=== PATIENT | male | born 1955 | race Caucasian/White ===

== ENCOUNTER 2021-11-27 10:09 | Emergency (ER) | payer OTHER, SELFPAY ==
[2021-11-27] VITALS (8 sets, daily range): BP systolic 125–142; BP diastolic 73–88; PULSE 110; RESP 18; TEMP 36.7; O2SAT 94–99
--- NOTE | ~2021-11-27 | XR_ITS ---
XR hip LT min 3V w AP pelvis DATE: 11/27/2021 11:03 INDICATION: Fall out of truck. Left hip pain, difficulty ambulating TECHNIQUE: AP pelvis. AP, lateral and crosstable lateral views of left hip COMPARISON: 06/17/2013 left hip FINDINGS: There is rotatory dextroscoliosis and prominent multilevel degenerative disease of the lumb ar and lumbosacral spine. The pubic symphysis and sacroiliac joints are intact. Status post left hip arthroplasty. Right hip moderately prominent osteoarthritis. No pelvic fracture or left hip fracture or dislocation or bone destruction is evident. 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 [employer]
--- NOTE | 2021-11-27 11:52 | ED.GENADULT ---
HPI - General Adult General Chief complaint: Fall Stated complaint: fall 11/24/21 - tailbone & hip pain Time Seen by Provider: 11/27/21 10:33 Source: patient Mode of arrival: ambulatory Limitations: no limitations History of Present Illness HPI narrative: Pt presents for evaluation of pain in the coccyx and left hip for the last 3 days. He was stepping down a ladder on a piece of work equipment and landed on his buttocks. He did not hit his head nor did he have a loss of consciousness. He reports constant pain in the affected areas since that time, with both areas rated 7/10 in severity. No radicular component. No paresthesias. No bladder/bowel incontinence. Denies saddle anesthesia. He had some leftover hydrocodone from some previous dental work which he took for his current pain. He states that the medication seems to have been effective. He has a hx of left hip replacement. He has been able to ambulate since the time of the event however movement seems to make his pain worse. Ortho provider is Dr Kaminski. Related Data Allergies Allergy/AdvReac Type Severity Reaction Status Date / Time Macrolide Antibiotics Allergy Unknown DIARRHEA Verified 07/18/15 15:13 Review of Systems Review of Systems: CONSTITUTIONAL: Denies fever, chills, or sweats. EYES: Denies visual changes, redness, or discharge. ENT: Denies rhinorrhea, congestion, sore throat, or otalgia. CARDIOVASCULAR: Denies chest pain, palpitations, or edema. RESPIRATORY: Denies cough or dyspnea. GASTROINTESTINAL: Denies abdominal pain, nausea, vomiting, or diarrhea. GENITOURINARY: Denies dysuria or hematuria. SKIN: Denies rash or itching. MUSCULOSKELETAL: Reports low back pain, pain in left hip and coccyx NEUROLOGIC: Denies headache, numbness, dizziness, or weakness. PSYCHIATRIC: Denies anxiety or depression. [facility] Surgical History Surgical History History of left hip replacement History of right knee joint replacement Family History Family History Mother Family history non-contributory Social History Social History Smoking packs per day: 1 Smoking cigarettes per day: 20.0 Smoking status: Current every day smoker Substance use: current Substance use type: marijuana Living arrangements: with family Gender identity (if verbalized by the patient): Male Sexual Orientation (if Verbalized by the Patient): Straight or Heterosexual Spiritual care concerns: No Exam Narrative: GENERAL: Well-appearing, well-nourished, and in no acute distress. HEAD: Normocephalic, atraumatic. EYES: PERRLA and EOMI. ENT: Nares clear, no rhinorrhea or epistaxis. Mucous membranes moist. Oropharynx without tonsillar hypertrophy exudate or other lesions. Bilateral TMs pearly baker nonbulging NECK: Supple. No adenopathy or masses. No carotid bruits or JVD CHEST: Clear to auscultation. No respiratory distress. No wheezes rales or rhonchi HEART: Regular rate and rhythm. No murmur heard. Normal peripheral pulses. ABDOMEN: Soft, nontender, nondistended, normal active bowel sounds. EXTREMITIES: Tenderness over left hip. Normal range of motion. No edema. BACK: Tenderness in midline and paraspinous muscles of lumbar spine and over sacrum SKIN: Warm, dry, no rash. NEURO: No focal deficits. Alert and oriented x3. PSYCH: Normal mood and affect. Course Course Emergency Course: This is a 66-year-old male who presented with complaints of pain in the tailbone and left hip following a fall several days ago. X ray was negative for fracture or disruption of hardware. I did verify with reading radiologist that there was no apparent fracture of the coccyx which he was able to visualize. Pt should follow-up outpatient for further evaluation and treatment return for worsening symptoms. Will DC with prescription fo
== END 2021-11-27 12:45 | disposition home or self-care (01) ==
PROVIDERS: Emergency Provider Nurse Practitioner; PCP Internal Medicine
DX: S30.0XXA Contusion of lower back and pelvis, initial encounter (principal); S70.02XA Contusion of left hip, initial encounter; Z96.642 Presence of left artificial hip joint; Z96.651 Presence of right artificial knee joint; F17.210 Nicotine dependence, cigarettes, uncomplicated; M16.11 Unilateral primary osteoarthritis, right hip; M51.36 Other intervertebral disc degeneration, lumbar region; W11.XXXA Fall on and from ladder, initial encounter
CPT/HCPCS: 73502; 99283

== ENCOUNTER 2022-03-25 07:33 | Emergency (ER) | payer OTHER, MEDICARE, SELFPAY ==
--- NOTE | ~2022-03-25 | XR_ITS ---
EXAMINATION: XR elbow RT min 3V DATE: 03/25/2022 08:00 INDICATION: Right elbow pain TECHNIQUE: Anteroposterior, two oblique and lateral views of the right elbow were obtained. COMPARISON: None. FINDINGS: There is moderate posterior soft tissue swelling of the elbow. No acute fracture is identif ied. Bone alignment is normal. 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 No joint effusion is id entified. IMPRESSION: 1. Soft tissue swelling and osteoarthritis without acute osseous abnormality identified. Reviewed, dictated and finalized at location A. IMPRESSION: 1. Soft tissue swelling and osteoarthritis without acute osseous abnormality id entified.
[2022-03-25 07:36] VITALS: BP 152/69; PULSE 94; RESP 16; TEMP 36.8; O2SAT 97
[2022-03-25 08:00] VITALS: BP 100/60; PULSE 80; RESP 19; O2SAT 97
--- NOTE | 2022-03-25 08:24 | ED.GENADULT ---
HPI - General Adult General Chief complaint: Extremity Injury, Upper Stated complaint: right elbow injury Time Seen by Provider: 03/25/22 07:45 History of Present Illness HPI narrative: 66-year-old male presented emergency department complaining of right elbow pain. Patient states few days ago he struck his elbow while at work. Patient states since that time he has had increased pain with flexion and extension of the right elbow. Patient denies any pain in her shoulder or wrist. Patient denies any associated numbness or weakness. Patient denies any fevers or other complaints. Patient did take some ibuprofen, Gary and THC Gummies for pain control without significant improvement. Patient states that the Gary did help. Patient states that ibuprofen does cause him pain. Related Data Allergies Allergy/AdvReac Type Severity Reaction Status Date / Time Macrolide Antibiotics Allergy Unknown DIARRHEA Verified 07/18/15 15:13 Review of Systems Review of Systems: CONSTITUTIONAL: Denies fever, chills, or sweats. EYES: Denies visual changes, redness, or discharge. ENT: Denies rhinorrhea, congestion, sore throat, or otalgia. CARDIOVASCULAR: Denies chest pain, palpitations, or edema. RESPIRATORY: Denies cough or dyspnea. GASTROINTESTINAL: Denies abdominal pain, nausea, vomiting, or diarrhea. GENITOURINARY: Denies dysuria or hematuria. SKIN: Denies rash or itching. MUSCULOSKELETAL: See HPI NEUROLOGIC: Denies headache, numbness, or weakness. [facility] Surgical History Surgical History History of left hip replacement History of right knee joint replacement Family History Family History Mother Family history non-contributory Social History Social History Smoking packs per day: 1 Smoking cigarettes per day: 20.0 Smoking status: Current every day smoker Substance use: current Substance use type: marijuana Gender identity (if verbalized by the patient): Male Sexual Orientation (if Verbalized by the Patient): Straight or Heterosexual Spiritual care concerns: No Exam Narrative: APPEARANCE: Well appearing, no pain, no distress, well-nourished. HEAD: normocephalic, atraumatic. EYES: PERRLA/EOMI, conjunctivae clear. NECK: Supple. No adenopathy, no masses. RESPIRATORY: Airway patent, respirations nonlabored. Clear to auscultation bilaterally, no rales, rhonchi, wheezing. CARDIOVASCULAR: Regular rate and rhythm without murmurs rubs or gallops. ABDOMINAL: Soft, nontender, nondistended, normal bowel sounds MUSCULOSKELETAL: No tenderness to right shoulder humerus or distal forearm or hand. Patient does have tenderness to palpation of medial lateral posterior elbow. Small effusion noted. No overlying erythema. No warmth. NEURO: Alert. Cranial nerves II through XII intact. Good gait. Good coordination SKIN: Warm, dry. Normal Color PSYCHIATRIC: Normal affect/mood. Course Course Emergency Course: Patient was given the results of his x-rays. Patient was educated on symptom control and pain control for home. Patient was encouraged with close follow-up with his primary care physician and with orthopedics. All questions and concerns were addressed. Vital Signs Vital signs: Vital Signs Temperature 98.3 F 03/25/22 07:36 Pulse Rate 94 03/25/22 07:36 Respiratory Rate 16 03/25/22 07:36 Blood Pressure 152/69 H 03/25/22 07:36 Pulse Oximetry 97 03/25/22 07:36 Oxygen Delivery Room Air 03/25/22 07:36 Temperature 98.3 F 03/25/22 07:36 Pulse Rate 80 03/25/22 08:00 Respiratory Rate 19 03/25/22 08:00 Blood Pressure 100/60 03/25/22 08:00 Pulse Oximetry 97 03/25/22 08:00 Oxygen Delivery Room Air 03/25/22 07:36 Medical Decision Making Vital Signs Vital Signs: Vital Signs Temperature 98.3 F 03/25/22 07:36 P
== END 2022-03-25 08:50 | disposition home or self-care (01) ==
PROVIDERS: Emergency Provider Emergency Medicine; PCP Internal Medicine
DX: S50.01XA Contusion of right elbow, initial encounter (principal); Z96.642 Presence of left artificial hip joint; Z96.651 Presence of right artificial knee joint; F17.210 Nicotine dependence, cigarettes, uncomplicated; W22.8XXA Striking against or struck by other objects, initial encounter
CPT/HCPCS: 73080; 99283; A4565

== ENCOUNTER 2022-04-15 08:24 | Emergency (ER) | payer MEDICARE, SELFPAY ==
--- NOTE | ~2022-04-15 | XR_ITS ---
EXAMINATION: XR ankle LT 2V DATE: 04/15/2022 08:38 INDICATION: Left ankle pain TECHNIQUE: Two views of the left ankle are obtained.. COMPARISON: None. FINDINGS: There is lateral soft tissue swelling of ankle. Bone alignment is normal. No fracture is id entified. IMPRESSION: 1. Lateral ankle soft tissue swelling without acute osseous abnormality identified. Reviewed, dictated and finalized at location A. IMPRESSION: 1. Lateral ankle soft tissue swelling without acute osseous abnormality identif ied.
--- NOTE | ~2022-04-15 | XR_ITS ---
EXAMINATION: XR foot LT min 3V DATE: 04/15/2022 08:55 INDICATION: Left foot pain TECHNIQUE: Dorsoplantar, lateral, and 2 oblique views of the left foot were obtained. COMPARISON: None. FINDINGS: Bone alignment is normal. There is no fracture. Ankle soft tissue swelling is noted. IMPRESSION: 1. No acute osseous abnormality. Reviewed, dictated and finalized at location A.
[2022-04-15 08:32] VITALS: BP 131/81; PULSE 80; RESP 18; TEMP 36.9; O2SAT 95
--- NOTE | 2022-04-15 08:51 | ED.GENADULT ---
HPI - General Adult General Chief complaint: Extremity Injury, Lower Stated complaint: ankle injury Time Seen by Provider: 04/15/22 08:26 History of Present Illness HPI narrative: 66-year-old male presenting to the emergency department for evaluation of left foot and ankle pain. Patient states he was getting out of his chair yesterday and shortly after starting walking he rolled his ankle causing him to fall to the ground. Patient states that he was able to walk afterwards but does have increased pain with weightbearing. Patient states he did hear a pop during the injury. Patient does report increased pain in the left lateral foot and in the left lateral ankle with weightbearing. Patient denies any head injury denies any loss of consciousness. Related Data Allergies Allergy/AdvReac Type Severity Reaction Status Date / Time Macrolide Antibiotics Allergy Unknown DIARRHEA Verified 07/18/15 15:13 Review of Systems Review of Systems: CONSTITUTIONAL: Denies fever, chills, or sweats. EYES: Denies visual changes, redness, or discharge. ENT: Denies rhinorrhea, congestion, sore throat, or otalgia. CARDIOVASCULAR: Denies chest pain, palpitations, or edema. RESPIRATORY: Denies cough or dyspnea. GASTROINTESTINAL: Denies abdominal pain, nausea, vomiting, or diarrhea. GENITOURINARY: Denies dysuria or hematuria. SKIN: See HPI MUSCULOSKELETAL: See HPI NEUROLOGIC: Denies headache, numbness, or weakness. PMFSH Surgical History Surgical History History of left hip replacement History of right knee joint replacement Family History Family History Mother Family history non-contributory Social History Social History Smoking packs per day: 1 Smoking cigarettes per day: 20.0 Smoking status: Current every day smoker Substance use: current Substance use type: marijuana Gender identity (if verbalized by the patient): Male Sexual Orientation (if Verbalized by the Patient): Straight or Heterosexual Spiritual care concerns: No Exam Narrative: APPEARANCE: Well appearing, no pain, no distress, well-nourished. HEAD: normocephalic, atraumatic. EYES: PERRLA/EOMI, conjunctivae clear. NECK: Supple. No adenopathy, no masses. RESPIRATORY: Airway patent, respirations nonlabored. Clear to auscultation bilaterally, no rales, rhonchi, wheezing. CARDIOVASCULAR: Regular rate and rhythm without murmurs rubs or gallops. ABDOMINAL: Soft, nontender, nondistended, normal bowel sounds MUSCULOSKELETAL: Ecchymosis and tenderness to palpation of the lateral malleolus. Patient also does have some ecchymosis to the dorsal left lateral sides of the foot with tenderness. No proximal tib-fib tenderness to palpation. NEURO: Alert. Cranial nerves II through XII intact. Grossly intact SKIN: Warm, dry. Normal Color Course Course Emergency Course: Patient was updated on the results of his x-rays. X-ray shows no acute fracture or dislocation. Patient was provided an Ricardo wrap and crutches for limited weightbearing. Patient was encouraged to have close follow-up with his primary care physician. All questions and concerns were addressed. Vital Signs Vital signs: Vital Signs Temperature 98.4 F 04/15/22 08:32 Pulse Rate 80 04/15/22 08:32 Respiratory Rate 18 04/15/22 08:32 Blood Pressure 131/81 04/15/22 08:32 Pulse Oximetry 95 04/15/22 08:32 Oxygen Delivery Room Air 04/15/22 08:32 Temperature 98.4 F 04/15/22 08:32 Pulse Rate 80 04/15/22 08:32 Respiratory Rate 18 04/15/22 08:32 Blood Pressure 131/81 04/15/22 08:32 Pulse Oximetry 95 04/15/22 08:32 Oxygen Delivery Room Air 04/15/22 08:32 Medical Decision Making Vital Signs Vital Signs: Vital Signs Temperature 98.4 F 04/15/22 08:32 Pulse Rate 80 04/15/22 08:32 Respiratory
== END 2022-04-15 09:48 | disposition home or self-care (01) ==
PROVIDERS: Emergency Provider Emergency Medicine; PCP Internal Medicine
DX: S93.402A Sprain of unspecified ligament of left ankle, initial encounter (principal); S96.912A Strain of unspecified muscle and tendon at ankle and foot level, left foot, initial encounter; Z96.642 Presence of left artificial hip joint; Z96.651 Presence of right artificial knee joint; X50.9XXA Other and unspecified overexertion or strenuous movements or postures, initial encounter
CPT/HCPCS: 73600; 73630; 99283